=== PATIENT | female | born 1955 | race Asian ===

== ENCOUNTER → 2017-03-10 | Outpatient (CLI) | payer OTHER | LOC: FIMAGING 07:33 | PROVIDERS: ATTEND Internal Medicine Hematology & Oncology | DX: Z12.31 Encounter for screening mammogram for malignant neoplasm of breast (principal); Z85.3 Personal history of malignant neoplasm of breast; Z80.3 Family history of malignant neoplasm of breast; Z92.3 Personal history of irradiation; Z92.21 Personal history of antineoplastic chemotherapy | CPT/HCPCS: G0202 ==

== ENCOUNTER → 2017-06-15 | Outpatient (CLI) | payer OTHER | LOC: FIMAGING 16:31 | PROVIDERS: ATTEND Family Medicine | DX: R06.02 Shortness of breath (principal) ==

== ENCOUNTER → 2018-03-14 | Outpatient (CLI) | payer OTHER | LOC: FIMAGING 08:08 | PROVIDERS: ATTEND Internal Medicine Hematology & Oncology | DX: Z12.31 Encounter for screening mammogram for malignant neoplasm of breast (principal); Z85.3 Personal history of malignant neoplasm of breast; Z92.21 Personal history of antineoplastic chemotherapy; Z92.3 Personal history of irradiation ==

== ENCOUNTER 2018-12-18 16:50 | Emergency (ER) | payer OTHER ==
--- NOTE | 2018-12-18 17:17 | EDPHY ---
H & P Stated Complaint: cp jaw pain while driving home from work Time Seen by Provider: 12/18/18 17:08 HPI/ROS: HPI: This is a 63-year-old female who presents with Chief Complaint: cp jaw pain while driving home from work Location: Left-sided chest Quality: Pain Duration: 30 min Signs and Symptoms: no shortness of breath at rest, no shortness of breath on exertion, no cough, + chest pain, no palpitations, no lower extremity edema, no wheezing, no orthopnea, no paroxysmal nocturnal dyspnea, no fever, no injury/ trauma, no hemoptysis, no carpal pedal spasms Timing: Acute, resolved Severity: 06/02 Context: Patient was driving home from work around 410 for 15 when she started to developed left-sided chest discomfort described as 8/10 and radiating up into her left jaw with left lip numbness. She reports that the pain and lasted approximately 30 min. He was associated with dyspnea but denies nausea, vomiting, diaphoresis. Patient reports that she did have cardiac awareness. Patient called her PCP who directed her to the [facility] and they directed her to the emergency room for further evaluation. Patient currently denies any chest pain, shortness of breath. She has a history of breast cancer diagnosed in 2002 status post right lumpectomy. Not taking any chemotherapy agents. No family cardiac history. No history of hypertension, diabetes, obesity, hyperlipidemia. No recent long distance travel. Modifying Factors: None Comment: ROS: A comprehensive 10 system review of systems is otherwise negative aside from elements mentioned in the history of present illness. MEDICAL/SURGICAL/SOCIAL HISTORY: Medical history: BREAST CA, Surgical history: LUMPECTOMY ON Right Social history: Never smoked. Employed. CONSTITUTIONAL: Physically fit female who appears younger than stated age , awake and alert, no obvious distress HEENT: Atraumatic and normocephalic, PERRL, EOMI. Nares patent; no rhinorrhea; no nasal mucosal edema. Tympanic membranes clear. Oropharynx clear, no exudate and moist pink mucosa. Airway patent. No lymphadenopathy. No meningismus. No Carotid bruits. Cardiovascular: Normal S1/S2, regular rate, regular rhythm, without murmur rub or gallop. PULMONARY/CHEST: Symmetrical and nontender. Clear to auscultation bilaterally. Good air movement. No accessory muscle usage. ABDOMEN: Soft, nondistended, nontender, no rebound, no guarding, no peritoneal signs, no masses or organomegaly. No CVAT. EXTREMITIES: 2/2 pulses, strength 5/5, no deformities, no clubbing, no cyanosis or edema. Negative Homans sign. NEUROLOGICAL: no focal neuro deficits. GCS 15. SKIN: Warm and dry, no erythema. no rash. Good capillary refill. Source: Patient Exam Limitations: No limitations - Personal History Current Tetanus Diphtheria and Acellular Pertussis (TDAP): Yes - Medical/Surgical History Hx Asthma: No Hx Chronic Respiratory Disease: No Hx Diabetes: No Hx Cardiac Disease: No Hx Renal Disease: No Hx Cirrhosis: No Hx Alcoholism: No Hx HIV/AIDS: No Hx Splenectomy or Spleen Trauma: No Other PMH: BREAST CA, LUMPECTOMY ON R. - Social History Smoking Status: Never smoked Constitutional: Initial Vital Signs Temperature (C) 36.7 C 12/18/18 16:59 Heart Rate 78 12/18/18 16:59 Respiratory Rate 18 12/18/18 16:59 Blood Pressure 131/91 H 12/18/18 16:59 O2 Sat (%) 100 12/18/18 16:59 O2 Delivery Mode Room Air Allergies/Adverse Reactions: Penicillins Allergy (Verified 12/18/18 16:59) Home Medications: Medication Instructions Recorded Spironolactone 12/18/18 Medical Decision Making - Diagnostics Imaging Results: Imaging Impressions Chest X-Ray 12/18/18 17:08 Impression: Hyperexpansion may reflect airways disease, with no superimposed acute abnormality identified. ED Course/Re-evaluation: Vital signs reviewed and stable upon arrival. Placed on court recording monitor. EKG, IV access, laboratory studies, chest x-ray ordered 1714: EKG my read with attending shows normal sinus rhythm with normal axis and no acute ischemic changes, no arrhythmias, no heart blocks. Given aspirin 324 mg. Chest x-ray my read shows no opacity, no effusion, no widened mediastinum, no pneumothorax. 1741: Labs reviewed. No signs of leukocytosis/anemia/platelet dysfunction/LISANDRO/ elevated LFTs/electrolyte imbalance/pancreatitis/ACS/VTE. After speaking with attending, decision made to repeat troponin in 3 hr. HEART score= 3; low risk I reviewed the share decision making instrument with the patient, including risk of MACE, and the patient (and family) that are in agreement with the chosen disposition. 1830: Repeat EKG shows normal sinus rhythm with PAC but no acute ischemic changes according to attending. Repeat troponin 0.01. Patient currently remains chest pain-free. Plan is for patient to be discharged with outpatient cardiology, risk factor modification, evaluate candidacy for stress test This patient was seen under the supervision of my secondary supervising physician. I evaluated care for this patient with attending. Discussed this patient with Dr. Braswell. Differential Diagnosis: Chest pain including but not limited to myocardial ischemia, pulmonary embolus, chest wall pain, pleural inflammation and pulmonary infectious causes. - Data Points Laboratory Results: Laboratory Results 12/18/18 17:10 12/18/18 17:10 12/18/18 12/18/18 12/18/18 20:36 17:26 17:10 WBC RBC Hgb Hct MCV MCH MCHC RDW Plt Count MPV Neut % (Auto) Lymph % (Auto) [place] % (Auto) Eos % (Auto) Baso % (Auto) Nucleat RBC Rel Count Absolute Neuts (auto) Absolute Lymphs (auto) Absolute Monos (auto) Absolute Eos (auto) Absolute Basos (auto) Absolute Nucleated RBC Immature Gran % Immature Gran # PT INR APTT D-Dimer Sodium 137 mEq/L mEq/L (135-145) Potassium 3.6 mEq/L mEq/L (3.5-5.2) Chloride 103 mEq/L mEq/L (97-110) Carbon Dioxide 23 mEq/l mEq/l (22-31) Anion Gap 11 mEq/L mEq/L (6-14) BUN 9 mg/dL mg/dL (7-23) Creatinine 0.6 mg/dL mg/dL (0.6-1.0) Estimated GFR > 60 Glucose 87 mg/dL mg/dL (70-100) Calcium 9.3 mg/dL mg/dL (8.5-10.4) Total Bilirubin 0.4 mg/dL mg/dL (0.1-1.4) Conjugated Bilirubin 0.3 mg/dL mg/dL (0.0-0.5) Unconjugated Bilirubin 0.1 mg/dL mg/dL (0.0-1.1) AST 33 IU/L IU/L (14-46) ALT 42 IU/L IU/L (9-52) Alkaline Phosphatase 101 IU/L IU/L (38-126) POC Troponin I 0.01 ng/mL ng/mL 0.00 ng/mL ng/mL (0.00-0.08) (0.00-0.08) NT-Pro-B Natriuret Pep 72 pg/mL pg/mL (0-125) Total Protein 7.5 g/dL g/dL (6.3-8.2) Albumin 4.3 g/dL g/dL (3.5-5.0) Lipase 145 IU/L IU/L (23-300) 12/18/18 12/18/18 17:10 17:10 WBC 6.77 10^3/uL 10^3/uL (3.80-9.50) RBC 3.95 10^6/uL L 10^6/uL (4.18-5.33) Hgb 12.8 g/dL g/dL (12.6-16.3) Hct 37.6 % L % (38.0-47.0) MCV 95.2 fL fL (81.5-99.8) MCH 32.4 pg pg (27.9-34.1) MCHC 34.0 g/dL g/dL (32.4-36.7) RDW 11.7 % % (11.5-15.2) Plt Count 242 10^3/uL 10^3/uL (150-400) MPV 9.1 fL fL (8.7-11.7) Neut % (Auto) 36.8 % L % (39.3-74.2) Lymph % (Auto) 45.5 % H % (15.0-45.0) [place] % (Auto) 11.1 % % (4.5-13.0) Eos % (Auto) 6.1 % % (0.6-7.6) Baso % (Auto) 0.4 % % (0.3-1.7) Nucleat RBC Rel Count 0.0 % % (0.0-0.2) Absolute Neuts (auto) 2.49 10^3/uL 10^3/uL (1.70-6.50) Absolute Lymphs (auto) 3.08 10^3/uL H 10^3/uL (1.00-3.00) Absolute Monos (auto) 0.75 10^3/uL 10^3/uL (0.30-0.80) Absolute Eos (auto) 0.41 10^3/uL H 10^3/uL (0.03-0.40) Absolute Basos (auto) 0.03 10^3/uL 10^3/uL (0.02-0.10) Absolute Nucleated RBC 0.00 10^3/uL 10^3/uL (0-0.01) Immature Gran % 0.1 % % (0.0-1.1) Immature Gran # 0.01 10^3/uL 10^3/uL (0.00-0.10) PT 12.6 SEC SEC (12.0-15.0) INR 0.92 (0.83-1.16) APTT 30.1 SEC SEC (23.0-38.0) D-Dimer 0.38 ug/mLFEU ug/mLFEU (0.00-0.50) Sodium Potassium Chloride Carbon Dioxide Anion Gap BUN Creatinine Estimated GFR Glucose Calcium Total Bilirubin Conjugated Bilirubin Unconjugated Bilirubin AST ALT Alkaline Phosphatase POC Troponin I NT-Pro-B Natriuret Pep Total Protein Albumin Lipase Medications Given: Discontinued Medications Aspirin (Aspirin) 324 mg PO EDNOW ONE Stop: 12/18/18 17:27 Last Admin: 12/18/18 17:31 Dose: 324 mg Point of Care Test Results: Chemistry 12/18/18 12/18/18 20:36 17:26 POC Troponin I 0.01 ng/mL ng/mL 0.00 ng/mL ng/mL (0.00-0.08) (0.00-0.08) Departure - Departure Disposition: Home, Routine, Self-Care Clinical Impression: Atypical chest pain Condition: Good Instructions: Chest Pain (ED) Additional Instructions: Return to the ER immediately if you experience new, continued or worsened chest pain, chest pain that radiates, chest pain accompanied by exertion or associated with shortness of breath, sweating, nausea, dizziness, back pain, or any other symptoms that concern you. Referrals: Magaly Leon MD [Primary Care Provider] - As per Instructions Garrett Cantor MD [Medical Doctor] - As per Instructions
[2018-12-18] MEDS ORDERED: ASPIRIN 81 MG CHEWABLE TAB PO ONE (17:26)
[2018-12-18 17:31] LABS: PLATELET COUNT 242 10^3/uL (150-400)
[2018-12-18 17:38] LABS: INR 0.92 (0.83-1.16); PROTIME(PATIENT) 12.6 SEC (12.0-15.0)
--- NOTE | 2018-12-18 19:31 | CPEKG ---
Test Reason : OPEN Blood Pressure : / mmHG Vent. Rate : 066 BPM Atrial Rate : 066 BPM P-R Int : 140 ms QRS Dur : 074 ms QT Int : 409 ms P-R-T Axes : 076 064 050 degrees QTc Int : 429 ms Sinus rhythm Confirmed by Mac Braswell ([id number]) on 12/18/2018 7:31:36 PM Referred By: Mac Braswell Confirmed By:Mac Braswell
[2018-12-18 21:08] VITALS: BP 129/82
--- NOTE | 2018-12-19 14:38 | CPEKG ---
Test Reason : OPEN Blood Pressure : / mmHG Vent. Rate : 066 BPM Atrial Rate : 066 BPM P-R Int : 146 ms QRS Dur : 078 ms QT Int : 414 ms P-R-T Axes : 069 059 049 degrees QTc Int : 434 ms Sinus rhythm Atrial premature complex Confirmed by Mac Braswell ([id number]) on 12/19/2018 2:38:11 PM Referred By: Mac Braswell Confirmed By:Mac Braswell
== END 2018-12-18 21:09 | disposition home or self-care (01) ==
DX: R07.89 Other chest pain (principal)
CPT/HCPCS: 84484-ER

== ENCOUNTER → 2019-03-15 | Outpatient (CLI) | payer OTHER | LOC: FIMAGING 08:12 | PROVIDERS: ATTEND Internal Medicine Hematology & Oncology | DX: Z12.31 Encounter for screening mammogram for malignant neoplasm of breast (principal); Z85.3 Personal history of malignant neoplasm of breast; Z80.3 Family history of malignant neoplasm of breast ==